=== PATIENT | male | born 1990 | race Caucasian/White ===

== ENCOUNTER → 2021-05-31 02:56 | Outpatient (CLI) | payer BC, SELFPAY ==
[2021-05-31 13:11] LABS: Influenza Control Positive
== END ==
PROVIDERS: PCP Physician Assistant; Visit Provider Physician Assistant
DX: R09.89 Other specified symptoms and signs involving the circulatory and respiratory systems (principal)
CPT/HCPCS: 87804

== ENCOUNTER → 2021-07-06 10:16 | Outpatient (CLI) | payer BC, SELFPAY ==
[2021-07-06 18:23] LABS: SARS-CoV-2 RNA PCR Positive
== END ==
PROVIDERS: PCP Physician Assistant; Visit Provider Physician Assistant
DX: U07.1 COVID-19 (principal)
CPT/HCPCS: C9803; U0003; U0005

== ENCOUNTER 2023-07-18 08:15 | Outpatient (CLI) | payer OTHER, SELFPAY | END 2023-07-18 08:16 | disposition home or self-care (01) | PROVIDERS: PCP Internal Medicine; Visit Provider Internal Medicine | DX: Z83.49 Family history of other endocrine, nutritional and metabolic diseases (principal) | CPT/HCPCS: 36415; 81256 ==

== ENCOUNTER 2023-08-31 09:02 | Emergency (ER) | payer OTHER, SELFPAY ==
--- NOTE | ~2023-08-31 | CT_ITS ---
EXAMINATION: CT abdomen pelvis w con DATE: 08/31/2023 10:26 INDICATION: Right lower quadrant TECHNIQUE: Computed tomography (CT) of the abdomen and pelvis was performed with 100 cc Omnipaque 350 intravenous contrast. The dose-length product was 539.74 mGy-cm. Automated exposure control and iter ative reconstruction technique were employed. COMPARISON: None. FINDINGS: Lung bases unremarkable. Heart size normal. No significant pleural or pericardial effusion. There is a 3 mm right UVJ stone with hydronephrosis. Mild right periureteral edema. Nonobstructing 4 mm right renal stone. There is delayed right nephrogram, consistent with obstruction. Liver, spleen, pancreas, adrenal glands and left kidney are unremarkable. Gallbladder is present. Non obstructive bowel gas pattern. No free air or free fluid. No acute osseous abnormality. IMPRESSION: 1. Obstructing 3 mm right UVJ stone with mild hydronephrosis. 2: Right nephrolithiasis. Reviewed, dictated and finalized at location A.
[2023-08-31 09:02] VITALS: BP 109/85; PULSE 85; RESP 22; TEMP 36.1; O2SAT 100
--- NOTE | 2023-08-31 09:25 | ED.GENADULT ---
HPI - General Adult General Chief complaint: Abdominal Pain <Jonatan Mcintyre MD - Last Filed: 09/27/23 11:37> Stated complaint: abdominal pain <Jonatan Mcintyre MD - Last Filed: 09/27/23 11:37> Time Seen by Provider: 08/31/23 09:11 <Jonatan Mcintyre MD - Last Filed: 09/27/23 11:37> History of Present Illness HPI narrative: The patient is a 32-year-old male with no significant past medical history. He had a bowel movement this morning without diarrhea or constipation. Subsequent to that, at 8:30 a.m. the patient, 1 hour ago, developed pain in the right periumbilical region, upper and lower, not radiating elsewhere throughout the abdomen, associated with nausea but no vomiting. No back pain. No URI symptoms. No fevers or chills. No urinary symptoms such as urgency or dysuria. No abdominal operations. No previous similar pain <Jonatan Mcintyre MD - Last Filed: 09/27/23 11:37> Related Data Home medications: Home Medications Medication Instructions Recorded Confirmed No Home Medications 07/12/23 07/12/23 <Jonatan Mcintyre MD - Last Filed: 09/27/23 11:37> Allergies/adverse reactions: Allergies Allergy/AdvReac Type Severity Reaction Status Date / Time No Known Allergies Allergy Unknown Verified 07/12/23 09:02 <Jonatan Mcintyre MD - Last Filed: 09/27/23 11:37> Review of Systems Review of Systems: All systems reviewed & are unremarkable except as noted in HPI and below <Jonatan Mcintyre MD - Last Filed: 09/27/23 11:37> Constitutional: Constitutional: Denies chills, Denies excessive sweating, Denies fatigue, Denies fever(s), Denies headache(s) and Denies weakness <Jonatan Mcintyre MD - Last Filed: 09/27/23 11:37> Eyes: Eyes: Denies change in vision and Denies photophobia <Jonatan Mcintyre MD - Last Filed: 09/27/23 11:37> ENT: Denies dysphagia, Denies dizziness, Denies headache(s), Denies lip swelling, Denies nasal congestion, Denies sore throat and Denies tongue swelling <Jonatan Mcintyre MD - Last Filed: 09/27/23 11:37> Cardiovascular: Cardiovascular: Denies chest pain, Denies syncope, Denies rapid heart rate and Denies dyspnea <Jonatan Mcintyre MD - Last Filed: 09/27/23 11:37> Respiratory: Respiratory: Denies cough, Denies dyspnea and Denies wheezing <Jonatan Mcintyre MD - Last Filed: 09/27/23 11:37> Gastrointestinal: Gastrointestinal: Reports abdominal pain, Denies constipation, Denies dysphagia, Denies diarrhea, Reports nausea and Denies vomiting <Jonatan Mcintyre MD - Last Filed: 09/27/23 11:37> Genitourinary: Genitourinary: Denies hematuria, Denies dysuria, Denies urinary frequency and Denies urinary urgency <Jonatan Mcintyre MD - Last Filed: 09/27/23 11:37> Musculoskeletal: Musculoskeletal: Denies back pain, Denies myalgias, Denies arthralgias, Denies joint swelling and Denies numbness <Jonatan Mcintyre MD - Last Filed: 09/27/23 11:37> Integumentary/Breasts: Skin/Breast: Denies pruritus, Denies erythema and Denies rash <Jonatan Mcintyre MD - Last Filed: 09/27/23 11:37> Neurologic: Denies confusion, Denies dizziness, Denies syncope, Denies headache(s), Denies focal weakness, Denies numbness and Denies weakness <Jonatan Mcintyre MD - Last Filed: 09/27/23 11:37> Psychiatric: Psychiatric: Denies anxiety and Denies confusion <Jonatan Mcintyre MD - Last Filed: 09/27/23 11:37> Endocrine: Endocrine: Denies excessive sweating and Denies fatigue <Jonatan Mcintyre MD - Last Filed: 09/27/23 11:37> Hematologic/Lymphatic: Hematologic/Lymphatic: Denies easy bleeding and Denies easy bruising <Jonatan Mcintyre MD - Last Filed: 09/27/23 11:37> Allergic/Immunologic: Allergic/Immunologic: Denies lip swelling, Denies tongue swelling and Denies wheezing <Jonatan Mcintyre MD - Last Filed: 09/27/23 11:37> [facility] Family History Family History: Family History Grandparent Hypertension Mother Patient's mother is in good health Father Pa
[2023-08-31] MEDS: SODIUM CHLORIDE 0.9% IV 1,000 ML 999 ML IV CONT ×2 (09:28→10:38)
[2023-08-31] MEDS: KETOROLAC 30 MG/ML VIAL (*BKC) IV PUSH (09:29)
[2023-08-31] MEDS: ONDANSETRON INJ 4 MG/2 ML VIAL IV PUSH ×2 (09:29→10:39)
[2023-08-31 09:39] LABS: Basophils Absolute Auto 0.04 K/mm3 (0.00-0.10); Basophils Percent Auto 0.6 % (0.0-1.0); Eosinophils Absolute Auto 0.12 K/mm3 (0.02-0.50); Eosinophils Percent Auto 1.9 % (1.0-6.0); Hematocrit 42.5 % (40.0-54.0); Hemoglobin 15.3 g/dL (14.0-18.0); Immature Granulocyte Absolute 0.03 K/mm3 (0.00-0.00); Immature Granulocyte Percent A 0.5 % (0.0-0.0); Lymphocytes Absolute Auto 1.86 K/mm3 (1.10-4.50); Lymphocytes Percent Auto 29.1 % (18.0-42.0); Mean Corpuscular Hemoglobin 30.5 pg (27.0-31.0); Mean Corpuscular Volume 84.7 fL (78.0-102.0); Mean Platelet Volume 9.6 fl (8.7-11.0); Monocytes Percent Auto 7.8 % (2.0-11.0); Neutrophils Absolute Auto 3.84 K/mm3 (1.70-7.20); Neutrophils Percent Auto 60.1 % (50.0-70.0); Platelet Count Result 254 K/mm3 (150-420); Red Blood Count 5.02 M/mm3 (4.70-6.10); Red Cell Distribution Width 12.1 % (11.6-14.4); White Blood Count 6.4 K/mm3 (4.8-10.8)
[2023-08-31 09:58] LABS: Alanine Aminotransferase 26 U/L (16-63); Albumin Level 3.6 g/dL (3.4-5.0); Alkaline Phosphatase 84 U/L (46-116); Amylase 50 U/L (25-115); Anion Gap 19 mmol/L (8-16); Aspartate Amino Transferase 16 U/L (15-37); Bilirubin,Total 0.5 mg/dL (0.00-1.00); Blood Urea Nitrogen 14 mg/dL (7-18); Calcium 8.5 mg/dL (8.5-10.1); Carbon Dioxide 17 mmol/L (21-32); Chloride 106 mmol/L (98-108); Estimated CRCL calculation 96 ml/min; Estimated Glomerular Filt Rate > 60; Glucose 138 mg/dL (70-99); Lipase 25 U/L (16-77); Osmolality Calculated 296 mOsm/kg (285-295); Potassium 3.6 mmol/L (3.5-5.1); Sodium 142 mmol/L (136-145); Total Protein 6.4 g/dL (6.4-8.2)
--- NOTE | 2023-08-31 10:03 | PC.NURSE ---
pt resting per cot. call troy in reach.
--- NOTE | 2023-08-31 10:14 | PC.NURSE ---
pt to xray for ct scan via wheelchair
[2023-08-31] MEDS: MORPHINE SULFATE (*CRX) 2 MG/ML INJ IV PUSH (10:39)
--- NOTE | 2023-08-31 11:09 | PC.NURSE ---
pt urinated 150ml noted kidney stone in urinal.
[2023-08-31 11:43] VITALS: BP 122/84; PULSE 78; RESP 16; O2SAT 98
[2023-08-31 11:52] LABS: Appearance Urine Clear (Clear); Bilirubin Urine Negative (Negative); Blood Urine 3+ (Negative); Color Urine Yellow (Yellow); Glucose Urine UA Negative (Negative); Ketones Urine Negative (Negative); Leukocyte Esterase Ur Negative LEU/UL (Negative); Nitrate Urine Negative (Negative); Protein Urine Negative (Negative); Urobilinogen Urine 0.2 mg/dL (0.2-1.0); pH Urine 7.5 (5.0-8.0)
[2023-08-31 11:57] LABS: Add Urine Microscopic? YES; RBC Urine 21-50 /hpf (0-2)
--- NOTE | 2023-08-31 11:59 | PC.NURSE ---
[id number] pt to follow up in office with dr rajan. instructed to take stone with him. voiced understanding
[2023-08-31 12:09] VITALS: BP 119/91; PULSE 84; RESP 20; TEMP 37; O2SAT 100
== END 2023-08-31 12:09 | disposition home or self-care (01) ==
PROVIDERS: Emergency Medicine; Emergency Provider Emergency Medicine; PCP Internal Medicine
DX: N13.5 Crossing vessel and stricture of ureter without hydronephrosis (principal)
CPT/HCPCS: 36415; 74177; 80053; 81001; 82150; 83605; 83690; 85025; 96361; 96374; 96375; 96376; 99284; J1885; J2270; J2405; J7030; Q9967